=== PATIENT | female | born 1985 | race Two or more races ===

== ENCOUNTER → 2018-02-01 | Outpatient (CLI) | payer BC ==
--- NOTE | 2018-02-01 11:29 | RADIOLOGY IMAGING REPORT ---
FACILITY: [facility] [place] PATIENT NAME: Dalila Hopper : 1985 MR: [id number] V: [id number] EXAM DATE: ORDERING PHYSICIAN: BREN DALLAS TECHNOLOGIST: Location: [facility] Patient: Dalila Hopper : 1985 Visit/Account:[id number] Date of Sevice: 02/01/2018 Exam type: SOFT TISSUE HEAD NECK History: Enlarged painful lymph nodes right side of neck Comparison: None. Findings: There is a 2.1 x 0.6 x 1 cm fatty replaced lymph node in zone two on the right. Also noted is a 2 x 0.6 x 0.8 cm fatty replaced lymph node in zone two on the right There is a 1.5 x 0.7 x 1.5 cm fatty replaced lymph node in zone one on the right There is a 1.4 x 0.9 x 0.5 cm fatty replaced lymph node in zone one on the right and a 1.3 x 0.6 x 0. 9 cm fatty replaced lymph nodes on one on the right There is a 0.9 x 1.3 x 0.7 cm lymph node zone two on the left although a definite fatty hilum was not demonstrated IMPRESSION: 1. Multiple zone one in zone two lymph nodes on the right largest measuring 2.1 x 0.6 x 1.1 cm with a fatty hilum There is a 0.9 x 1.3 x 0.7 cm lymph node in zone two on the left although a definite fatty hilum is n ot demonstrated Report Dictated By: Ele Iniguez MD at 02/01/2018 11:08 AM Report E-Signed By: Ele Iniguez MD at 02/01/2018 11:25 AM WSN:[id number]
== END ==
LOC: US 07:42
PROVIDERS: ATTEND Physician Assistant Medical
DX: R59.0 Localized enlarged lymph nodes (principal)
CPT/HCPCS: 76536